=== PATIENT | female | born 1930 | race Caucasian/White ===

== ENCOUNTER 2016-09-28 07:55 | Inpatient (IN) | payer MEDICARE, OTHER ==
--- NOTE | ~2016-09-28 | IDS ---
Interim Discharge Summary [facility] [address] [place]. [address] NAME: RAMIN KENNEDY : 28 STATUS : DIS IN PAT#: [id number] AGE: 86 ADM/REG DATE : 09/29/16 MR#: [id number] REPORT SERV DATE: 10/01/16 DICTATED BY: JR. SORIANO WILLIAM JOHN DATE: 10/01/16 REPORT STATUS : Draft TRANSCRIBED BY: AMY DATE: 10/01/16 ADMISSION DATE: 09/29/2016 DISCHARGE DATE: This summary covers the time period from 09/29/2016 through 10/01/2016. WORKING DIAGNOSES: Include: 1. Frequent falls. 2. Right knee pain. 3. History of right total knee arthroplasty. 4. Encephalopathy with low-grade fever which has resolved. 5. Leukocytosis without shift. 6. Diarrhea which has resolved. 7. Chronic kidney disease, stage 3, which is stable. 8. Intertrigo. 9. History of hypertension. 10.History of remote stroke. OPERATIONS, PROCEDURES, AND TREATMENTS: Include: 1. Right knee aspirate by Dr. Okeefe, which showed no fat, essentially ruling out fracture. 2. CT of the brain done on 09/28/2016, which showed no acute intracranial abnormality atrophy with chronic small white matter changes. 3. Chest x-ray done on 09/29/2016, which showed minimal basilar atelectasis. 4. Right knee x-ray done on 09/29/2016, which showed expected appearance of right knee prosthesis without fracture or hardware loosening. There was a small joint effusion. 5. Echocardiogram done on 09/30/2016, which showed normal left ventricular size and systolic function and an ejection fraction of 55% with mild left ventricular diastolic dysfunction with normal right ventricular size and systolic function. There was no significant valvular disease. 6. Right ankle x-ray done on 09/30/2016, which showed soft tissue swelling without acute fracture or dislocation. 7. Chest x-ray done on 09/30/2016, which showed no acute cardiopulmonary disease. 8. MRI of the right knee done on 09/30/2016, which showed diffuse soft tissue edema of the right knee with moderately large knee joint effusion without evidence of periprosthetic fracture or bone bruising. There was evidence of a right total knee arthroplasty with patellar resurfacing. CURRENT MEDICATIONS: Include: 1. Aspirin 325 daily. 2. BuSpar 10 mg twice a day. 3. Duloxetine 30 mg twice a day. 4. Fluconazole 100 daily. 5. Neurontin 300 t.i.d. 6. Heparin 5000 units subcutaneously every 12 hours. 7. Sliding scale Humalog insulin. Interim Discharge Summary [address] [place]. [address] NAME: RAMIN KENNEDY : 29 STATUS : DIS IN PAT#: [id number] AGE: 86 ADM/REG DATE : 09/29/16 MR#: [id number] REPORT SERV DATE: 10/01/16 DICTATED BY: JR. SORIANO WILLIAM JOHN DATE: 10/01/16 REPORT STATUS : Draft TRANSCRIBED BY: AMY DATE: 10/01/16 8. Synthroid 75 mcg daily. 9. Metoprolol succinate 25 mg daily. 10.Nystatin topically twice a day. HOSPITAL COURSE: The patient is an 86-year-old female who presented to the emergency room on 09/28/2016, after a fall. The patient experienced several falls over the last several months. She had had three in the past week. Typically, she is upright and then states "everything goes black" and she is on the floor. Today, she had an episode at the assisted living and was found on the floor. She just states she was weak and dizzy and went to the floor. She did say she had abdominal pain, chest pain, without documented fever and had diarrhea over the weekend. On initial exam, her temperature was 100.7, blood pressure 123/54, heart rate 92, respiratory rate 20. Exam was remarkable for knee swelling and ecchymoses. Otherwise, unremarkable. EKG shows sinus rhythm without acute ST or T-wave change. BUN was 26. Creatinine was 1.5. Troponin was normal. Urinalysis unremarkable. The patient was admitted to the clinical decision unit for frequent falls. Regarding the right knee pain, the patient was seen by Dr. Okeefe of Orthopedic Surgery, who was kind enough to do an arthrocentesis of the joint to rule out fracture. There was no fat. There was blood indicating hemarthrosis. The knee remained red, hot, and swollen. Dr. Okeefe requested a knee brace with physical therapy. I discussed this with Dr. Okeefe at length. The patient also had a low-grade fever up to 100.8, one spike during the hospitalization. Otherwise, all temperatures were less than 100, I was concerned about a septic knee. Dr. Okeefe states that based on appearance of symptoms, he does not feel this is an infected knee and does not require an arthrocentesis. The patient did have an MRI as above. Recommendation for the right knee pain is to be weightbearing as tolerated on the right knee using a brace as needed along with analgesia and physical therapy. Regarding encephalopathy, this likely was a metabolic encephalopathy. There was no infectious source identified. The patient did have a CT of the brain as above and the encephalopathy has resolved. Regarding intertrigo, the patient was placed on fluconazole. I would recommend a one-week course of this followed by topical antifungal medications. Regarding the patient's frequent falls, she will need supervision and physical therapy. CURRENT DIET: Regular. CURRENT ACTIVITY: Weightbearing as tolerated. For today's exam and laboratory, please see the daily progress note. will assume the care of this patient in the morning. I would anticipate the patient would go to a jail facility tomorrow. Interim Discharge Summary [address] [address] NAME: RAMIN KENNEDY : 28 STATUS : DIS IN PAT#: [id number] AGE: 86 ADM/REG DATE : 09/29/16 MR#: [id number] REPORT SERV DATE: 10/01/16 DICTATED BY: JR. SORIANO WILLIAM JOHN DATE: 10/01/16 REPORT STATUS : Draft TRANSCRIBED BY: AMY DATE: 10/01/16 ALYSSAF/AMY Martinez Soriano Jr, MD / [id number] CC: Martinez Soriano Jr, MD
--- NOTE | ~2016-09-28 | HP ---
History And Physical [place] [address] [facility] [address] [place]. [address] NAME: RAMIN KENNEDY : 28 STATUS : ADM Geri PAT#: [id number] AGE: 86 ADM/REG DATE : 09/28/16 MR#: [id number] REPORT SERV DATE: 09/28/16 DICTATED BY: SLIM LIMON DATE: 09/28/16 REPORT STATUS : Draft TRANSCRIBED BY: MODJoceline DATE: 09/28/16 DATE OF ADMISSION: 09/28/2016 CHIEF COMPLAINT: Falls. HISTORY OF PRESENT ILLNESS: The patient is a very pleasant 86-year-old white female. She has had several falls over the last several months, but she has had three in the last week. Typically with these falls, she is upright and she is basically states everything goes black and then she is on the floor. Today, she had an episode at the assisted living, was found on the floor. She just states that she felt weak and dizzy and then went down to the floor. She did have any chest pain. She did have any abdominal pain. She did not feel particularly short of breath. She has not had any documented fevers. She has not had any vomiting. She did have diarrhea over the weekend. She states "multiple episodes." Her last diarrhea, however, was on Tuesday. She had none on Tuesday or Tuesday. She had had previous diarrhea to that a couple of weeks ago. She has frequent diminished appetite and weakness all over. Typically, her single episodes happen. When they happen, she feels dizzy and ends up on the floor. PAST MEDICAL HISTORY: 1. Hypertension. 2. Osteoarthritis. 3. Fibromyalgia. 4. Nephrolithiasis. 5. Hypothyroidism. 6. Hiatal hernia. 7. Gastritis. 8. Hyperlipidemia. 9. CVA with right-sided symptoms since resolved. 10.Hemorrhoids. 11.Peripheral neuropathy. SOCIAL HISTORY: She is a nondrinker, nonsmoker. PAST SURGICAL HISTORY: She has had a right total knee arthroplasty, bilateral total hip arthroplasty, back surgery, shoulder surgery, colon surgery, hysterectomy, cholecystectomy. FAMILY HISTORY: Positive for CAD and CVAs. HOME MEDICATIONS: Reviewed and attached. ALLERGIES: CODEINE. REVIEW OF SYSTEMS: Full 10-point review of systems obtained. Pertinent positives as mentioned in the HPI with the addition of skin. She does have erythema under the skin and what looks like a candidal rash. History And Physical [address] [place]. [address] NAME: RAMIN KENNEDY : 28 STATUS : ADM Geri PAT#: [id number] AGE: 86 ADM/REG DATE : 09/28/16 MR#: [id number] REPORT SERV DATE: 09/28/16 DICTATED BY: SLIM LIMON DATE: 09/28/16 REPORT STATUS : Draft TRANSCRIBED BY: AMY DATE: 09/28/16 PHYSICAL EXAMINATION: VITAL SIGNS: BP 123/54; sats 94%; temperature was 100.7 initially, I checked it again and it was 98.2; pulse is 92; respiratory rate is 20. GENERAL: A well-developed white female, elderly. HEENT: Normocephalic, atraumatic. Pupils are equal, round, and reactive. Throat is clear. NECK: Supple. Extraocular muscles are intact. HEART: Regular rate and rhythm. LUNGS: Grossly clear. ABDOMEN: Soft, nondistended, nontender. EXTREMITIES: Warm and dry. Skin is intact. There are no rashes. Pulses are 2+ at the feet. LAB AND X-RAY: EKG shows sinus rhythm with no acute ST-T wave changes and this was compared to a previous EKG back in 2012 and it was unchanged. CBC: Hemoglobin and hematocrit are 12 and 36, white count 12, platelets are 232. Basic metabolic panel: BUN and creatinine 26 and 1.48, glucose 124. LFTs are normal. Troponin is normal. Urinalysis is negative. Knee film does not reveal an acute fracture on the right knee. Brain CT shows chronic white matter changes, but nothing else on atrophy. EKG showed sinus rhythm with no acute ST-T wave changes and this was compared to previous EKG and is unchanged. ASSESSMENT/PLAN: 1. Frequent falls. Etiology not quite clear. I am going to check orthostatics. I think another consideration is a cardiac etiology. I think if we do not find orthostasis or another etiology, we can likely send her home with an event monitor. I think dehydration is a possibility. She had diarrhea over the weekend. I am going to hydrate her. Workup for diarrhea if she has any additional diarrhea. Check orthostatic blood pressure and pulse. Keep her on a tele bed. Repeat her EKG in the morning and see how things look in 24 hours. 2. Diarrhea has since resolved, but if she has additional diarrhea, we will send it off for C diff. She is going to get some IV fluids today. 3. Chronic kidney disease. There was a concern by the ER that she had acute kidney injury, however, if you look back, her last creatinine in April was 1.6, today it is 1.48. I am going to hydrate her and watch her renal function and see if there is any evidence that this was potentially reversible, but it looks like it has been there for some time. 4. Right knee pain. X-rays initially negative with no evidence of fracture. We will have Dr. Okeefe see her in consultation. Perhaps a steroid injection could relieve some of her pain and we can get her back on her feet a little faster, so she could be discharged. 5. History of hypertension. I think given her blood pressure, which is a bit borderline, she certainly does not appear to be hypertensive. I am going to hold some of her antihypertensives, check some orthostatics, and go from there. 6. History of cerebrovascular accident with symptoms resolved, follow. 7. Intertrigo under the folds including the breast folds and groin. We will likely explore the option of treating her with p.o. Diflucan along with some topical therapy to see if this assists as it has been difficult to clear. History And Physical [address] [address] NAME: RAMIN KENNEDY : 29 STATUS : ADM Geri PAT#: [id number] AGE: 86 ADM/REG DATE : 09/28/16 MR#: [id number] REPORT SERV DATE: 09/28/16 DICTATED BY: SLIM LIMON DATE: 09/28/16 REPORT STATUS : Draft TRANSCRIBED BY: MODJoceline DATE: 09/28/16 8. Deep venous thrombosis prophylaxis. We will give her subcu heparin. 9. Disposition. Pending above aforementioned plan and workup. GILMAR/AMY Slim Limon M.D. / [id number] CC: Martinez Soriano Jr, MD Zynia Pua-Vines, M.D.
--- NOTE | ~2016-09-28 | HP ---
History And Physical [place] [id number] [facility] [place]. [address] NAME: RAMIN KENNEDY : 29 STATUS : ADM Geri PAT#: [id number] AGE: 86 ADM/REG DATE : 09/28/16 MR#: [id number] REPORT SERV DATE: 09/28/16 DICTATED BY: MARTINEZ GOMES DATE: 09/28/16 REPORT STATUS : Draft TRANSCRIBED BY: MODJoceline DATE: 09/28/16 DATE OF ADMISSION: 09/28/2016 CHIEF COMPLAINT: Right knee pain. HISTORY: This is an 86-year-old female, who, many years ago, had a right total knee arthroplasty. Normally walks with a walker. In assisted living for the last two months. She has had multiple episodes of syncope and multiple falls. Now after this fall, she has severe pain with trying to move her knee. She denies any pain at the hip or hip region. She denies loss of consciousness, shortness of breath, chest pain, etc. ALLERGIES: NONE REPORTED. MEDICATIONS: See chart. PAST MEDICAL HISTORY: She is a difficult historian and none was available on the chart at this point. They are trying to pull old records. SOCIAL HISTORY: Again, she lives in assisted living now, currently without cigarettes, alcohol, or illicit drug use. FAMILY HISTORY: Really noncontributory. REVIEW OF SYSTEMS: Recent falls as noted above. PHYSICAL EXAMINATION: GENERAL: She is alert and oriented x3, in no apparent distress. Slow on memory of remote events. HEENT: Atraumatic, normocephalic. NECK: Supple. CHEST: Symmetric. LUNGS: Per Medicine evaluation. CV: Regular. EXTREMITIES: Both upper extremities and left lower extremity without acute trauma. Right knee has pain with range of motion from 0 to 30 degrees with significant pain and effusion. She had no appreciable erythema or warmth. Compartment supple. 2+ pulses. NEURO: Sensorimotor without deficit. Her foot, she has lacking about 10 degrees of extension at the knee with no palpable defects or instability. X-ray revealed total knee arthroplasty without complication except for questionable slight valgus. ASSESSMENT: Osteoporosis, multiple falls, now with probable hemarthrosis in the knee, which raises a question of occult fracture. The extensor mechanism appears to be intact and there is no evidence of hip trauma. She tolerates gentle motion there. PLAN: We will attempt to aspirate some of the fluid from that knee. We will see how she History And Physical [address] [place]. [place]. [address] NAME: RAMIN KENNEDY : 28 STATUS : ADM Geri PAT#: [id number] AGE: 86 ADM/REG DATE : 09/28/16 MR#: [id number] REPORT SERV DATE: 09/28/16 DICTATED BY: MARTINEZ GOMES DATE: 09/28/16 REPORT STATUS : Draft TRANSCRIBED BY: MODJoceline DATE: 09/28/16 does from there. She does not have any workup for syncope according to the chart at present. WTB/MODL Kia Gomes M.D. / [id number] CC: Martinez Soriano Jr, MD Zynia Pua-Vines, M.D.
[~2016-09-28 07:55] MED LIST: ALEVE220 MG PO; ASAB PO; B12 PO; CYANO1000T PO; CYMBALTA60 PO; HYZAAR 50/12.51 TAB PO; LEVOTHROID50 MCG PO; MULTI-VIT HP OR; NEUR300 PO; NEXIUM40 PO; PRIN5 PO; ZOCOR40 PO
[2016-09-28 08:10] LABS: BASOPHILS 0.3 %; BASOPHILS ABSOLUTE 0.04 10/3/uL (0.0-0.16); EOSINOPHILS 2.1 %; EOSINOPHILS ABSOLUTE 0.25 10/3/uL (0.0-0.53); ER CBC TAT 0 Hrs 03 Mins; HEMATOCRIT 36.8 % (36.0-48.0); HEMOGLOBIN 12.2 g/dL (12.0-16.0); IMMATURE GRANULOCYTES 0.6 %; IMMATURE GRANULOCYTES ABSOLUTE 0.07 10/3/uL (0.0-0.11); LYMPHOCYTES 28.7 %; LYMPHOCYTES ABSOLUTE 3.45 10/3/uL (0.67-4.30); MEAN CORPUS HGB CONC 33.2 g/dL (32.0-36.0); MEAN CORPUSCULAR HEMOGLOB 31.8 pg (26.0-34.0); MEAN CORPUSCULAR VOLUME 95.8 fL (80-100); MEAN PLATELET VOLUME 9.5 fL (9.2-13.0); MONOCYTES 13.3 %; PLATELET COUNT 232 10/3/uL (150-400); RBC DISTRIBUTION WIDTH 13.4 % (12.0-16.0); RED CELL COUNT 3.84 10/6/uL (4.0-5.6)
[2016-09-28 08:11] LABS: MANUAL DIFF NO %
[2016-09-28 08:18] LABS: INTERNATIONAL NORMAL RATI 1.1 UNITS (-); PARTIAL THROMBO TIME 31.8 SEC (22.5-37.2); PROTIME (NOT ORD) 14.4 SEC (12.0-14.5)
[2016-09-28 08:21] LABS: ASCORBIC ACID (UR NOT ORDER) NEG (NEG); BILIRUBIN, URINE NEGATIVE (NEG); ER URINALYSIS TAT 0 Hrs 14 Mins; KETONE, URINE NEGATIVE (NEG); LEUKOCYTE ESTERASE(NOT OR NEG (NEG); NITRITE (URINE) NEG (NEG); WBC (NOT ORDERED) (RFLEX) < 1 (0-5)
[2016-09-28 08:28] LABS: A/G RATIO 0.9 (0.7-1.9); ALBUMIN 3.4 G/DL (3.5-5.0); ALKALINE PHOSPHATASE 117 U/L (45-117); BUN (BLOOD UREA NITROGEN) 26 MG/DL (6-23); CALCIUM, SERUM 9.2 MG/DL (8.5-10.4); CHLORIDE, SERUM 99 MMOL/L (96-112); CO2 (CARBON DIOXIDE) 31 MMOL/L (24-34); CREATININE 1.48 MG/DL (0.55-1.02); GFR AFRICAN AMERICAN 37 ML/MIN (>=60); GFR NON AFRICAN AMERICAN 32 ML/MIN (>=60); GLOBULIN 3.9 G/DL (2.5-4.1); GLUCOSE, SERUM 124 MG/DL (60-99); POTASSIUM, SERUM 3.6 MMOL/L (3.5-5.3); SGOT(AST) 32 U/L (5-40); SGPT(ALT) 25 U/L (5-65); SODIUM, SERUM 139 MMOL/L (135-148); TOTAL BILIRUBIN 0.6 MG/DL (0-1.2); TOTAL PROTEIN 7.3 G/DL (6.0-8.5); TROPONIN I <0.02 NG/ML (<0.05)
[2016-09-28] MEDS ORDERED: L40 PO (11:02)
[2016-09-28] MEDS ORDERED: ASA5GR PO (11:02)
[2016-09-28] MEDS ORDERED: SYN075 PO (11:03)
[2016-09-28] MEDS ORDERED: HYZAAR 100/25 T1 TAB PO (11:03)
[2016-09-28] MEDS ORDERED: GLUCOPHXR PO (11:03)
[2016-09-28] MEDS ORDERED: TOPXL25 PO (11:03)
[2016-09-28] MEDS ORDERED: BUSPAR10 PO (11:04)
[2016-09-28] MEDS ORDERED: CYMBALTA30 PO (11:04)
[2016-09-28] MEDS ORDERED: KLOR-CON M2020 MEQ PO (11:05)
[2016-09-28] MEDS ORDERED: NEUR300 PO (11:06)
[2016-09-28 13:51] LABS: PROCALCITONIN 0.07 ng/mL (<0.5)
[2016-09-29 05:52] LABS: BASOPHILS 0.2 %; BASOPHILS ABSOLUTE 0.03 10/3/uL (0.0-0.16); EOSINOPHILS 0.1 %; EOSINOPHILS ABSOLUTE 0.01 10/3/uL (0.0-0.53); HEMATOCRIT 35.3 % (36.0-48.0); HEMOGLOBIN 11.8 g/dL (12.0-16.0); IMMATURE GRANULOCYTES 0.7 %; IMMATURE GRANULOCYTES ABSOLUTE 0.08 10/3/uL (0.0-0.11); LYMPHOCYTES ABSOLUTE 2.42 10/3/uL (0.67-4.30); MEAN CORPUS HGB CONC 33.4 g/dL (32.0-36.0); MEAN CORPUSCULAR HEMOGLOB 32.2 pg (26.0-34.0); MEAN CORPUSCULAR VOLUME 96.2 fL (80-100); MEAN PLATELET VOLUME 9.5 fL (9.2-13.0); MONOCYTES 12.3 %; MONOCYTES ABSOLUTE 1.49 10/3/uL (0.21-1.20); NEUTROPHILS 66.7 %; NEUTROPHILS ABSOLUTE 8.07 10/3/uL (2.02-8.40); PLATELET COUNT 235 10/3/uL (150-400); RBC DISTRIBUTION WIDTH 13.3 % (12.0-16.0); RED CELL COUNT 3.67 10/6/uL (4.0-5.6); WHITE BLOOD CELLS 12.1 10/3/uL (4.5-10.5)
[2016-09-29 05:55] LABS: MANUAL DIFF NO %
[2016-09-29 05:56] LABS: CALCIUM, SERUM 8.8 MG/DL (8.5-10.4); CHLORIDE, SERUM 105 MMOL/L (96-112); CREATININE 1.16 MG/DL (0.55-1.02); GFR AFRICAN AMERICAN 49 ML/MIN (>=60); GFR NON AFRICAN AMERICAN 42 ML/MIN (>=60); GLUCOSE, SERUM 144 MG/DL (60-99); POTASSIUM, SERUM 3.8 MMOL/L (3.5-5.3); SODIUM, SERUM 141 MMOL/L (135-148)
[2016-09-29 05:57] LABS: BUN (BLOOD UREA NITROGEN) 18 MG/DL (6-23); CO2 (CARBON DIOXIDE) 26 MMOL/L (24-34)
[2016-09-30 04:44] LABS: BASOPHILS 0.3 %; BASOPHILS ABSOLUTE 0.03 10/3/uL (0.0-0.16); EOSINOPHILS ABSOLUTE 0.36 10/3/uL (0.0-0.53); HEMATOCRIT 32.1 % (36.0-48.0); HEMOGLOBIN 10.6 g/dL (12.0-16.0); IMMATURE GRANULOCYTES 1.3 %; IMMATURE GRANULOCYTES ABSOLUTE 0.16 10/3/uL (0.0-0.11); LYMPHOCYTES 20.7 %; LYMPHOCYTES ABSOLUTE 2.46 10/3/uL (0.67-4.30); MEAN CORPUSCULAR HEMOGLOB 31.9 pg (26.0-34.0); MEAN CORPUSCULAR VOLUME 96.7 fL (80-100); MEAN PLATELET VOLUME 10.3 fL (9.2-13.0); MONOCYTES 13.2 %; MONOCYTES ABSOLUTE 1.57 10/3/uL (0.21-1.20); NEUTROPHILS 61.5 %; PLATELET COUNT 193 10/3/uL (150-400); RBC DISTRIBUTION WIDTH 13.5 % (12.0-16.0); RED CELL COUNT 3.32 10/6/uL (4.0-5.6); WHITE BLOOD CELLS 11.9 10/3/uL (4.5-10.5)
[2016-09-30 04:45] LABS: MANUAL DIFF NO %
[2016-09-30 04:49] LABS: CALCIUM, SERUM 8.6 MG/DL (8.5-10.4); CHLORIDE, SERUM 103 MMOL/L (96-112); CO2 (CARBON DIOXIDE) 25 MMOL/L (24-34); CREATININE 1.14 MG/DL (0.55-1.02); GFR AFRICAN AMERICAN 50 ML/MIN (>=60); GFR NON AFRICAN AMERICAN 43 ML/MIN (>=60); POTASSIUM, SERUM 4.1 MMOL/L (3.5-5.3); SODIUM, SERUM 137 MMOL/L (135-148)
[2016-09-30 04:51] LABS: BUN (BLOOD UREA NITROGEN) 22 MG/DL (6-23); GLUCOSE, SERUM 106 MG/DL (60-99)
[2016-09-30 05:32] LABS: PLATELET ESTIMATE ADQ (ADEQUATE)
[2016-09-30 05:33] LABS: RBC MORPHOLOGY NORM (NORMAL)
[2016-10-01 05:06] LABS: BASOPHILS 0.2 %; BASOPHILS ABSOLUTE 0.03 10/3/uL (0.0-0.16); EOSINOPHILS 0.7 %; HEMOGLOBIN 9.3 g/dL (12.0-16.0); IMMATURE GRANULOCYTES 0.4 %; IMMATURE GRANULOCYTES ABSOLUTE 0.06 10/3/uL (0.0-0.11); LYMPHOCYTES 16.1 %; LYMPHOCYTES ABSOLUTE 2.39 10/3/uL (0.67-4.30); MEAN CORPUS HGB CONC 32.6 g/dL (32.0-36.0); MEAN CORPUSCULAR HEMOGLOB 31.7 pg (26.0-34.0); MEAN CORPUSCULAR VOLUME 97.3 fL (80-100); MEAN PLATELET VOLUME 9.9 fL (9.2-13.0); MONOCYTES 12.6 %; MONOCYTES ABSOLUTE 1.87 10/3/uL (0.21-1.20); NEUTROPHILS ABSOLUTE 10.43 10/3/uL (2.02-8.40); PLATELET COUNT 228 10/3/uL (150-400); RBC DISTRIBUTION WIDTH 13.3 % (12.0-16.0); RED CELL COUNT 2.93 10/6/uL (4.0-5.6); WHITE BLOOD CELLS 14.9 10/3/uL (4.5-10.5)
[2016-10-01 05:10] LABS: HEMATOCRIT 28.5 % (36.0-48.0)
[2016-10-01 05:11] LABS: MANUAL DIFF NO %
== END 2016-10-01 14:26 | DRG 553 ==
LOC: ER 07:55 → CDU1 10:38 → 7NO 09-30 17:30
PROVIDERS: Internal Medicine; Nurse Practitioner Acute Care
PROC: 0S9C3ZX Drainage of Right Knee Joint, Percutaneous Approach, Diagnostic (ICD-10-PCS; principal; 2016-09-28)
DX: M25.061 Hemarthrosis, right knee (principal); G93.41 Metabolic encephalopathy; L30.4 Erythema intertrigo; R19.7 Diarrhea, unspecified; W19.XXXA Unspecified fall, initial encounter; N18.3 Chronic kidney disease, stage 3 (moderate); I12.9 Hypertensive chronic kidney disease with stage 1 through stage 4 chronic kidney disease, or unspecified chronic kidney disease; Z91.81 History of falling; Z86.73 Personal history of transient ischemic attack (TIA), and cerebral infarction without residual deficits; Z96.651 Presence of right artificial knee joint; Z79.82 Long term (current) use of aspirin
CPT/HCPCS: 70450; 71010; 73560-RT; 73610-RT; 73721-RT; 80048; 80053; 81001; 82962; 84145; 84443; 84484; 85025; 85610; 85730; 87040; 87493; 87493-59; 93005; 97110-GP; 97162-GP; 97165-GO; 99285; A9270-GY; C8929; G8978-CM-GP; G8979-CJ-GP; G8987-CK-GO; G8988-CJ-GO; Q9957

== ENCOUNTER 2016-11-20 15:07 | Emergency (ER) | payer MEDICARE, OTHER ==
[~2016-11-20 15:07] MED LIST changes: +ASA5GR PO; +BUSPAR10 PO; +CYMBALTA30 PO; +GLUCOPHXR PO; +HYZAAR 100/25 T1 TAB PO; +KLOR-CON M2020 MEQ PO; +L40 PO; +SYN075 PO; +TOPXL25 PO
== END 2016-11-20 17:27 | disposition home or self-care (01) ==
LOC: ER 15:07
DX: S93.401A Sprain of unspecified ligament of right ankle, initial encounter (principal); I10 Essential (primary) hypertension; K21.9 Gastro-esophageal reflux disease without esophagitis; Z86.73 Personal history of transient ischemic attack (TIA), and cerebral infarction without residual deficits; Z87.442 Personal history of urinary calculi; Z88.5 Allergy status to narcotic agent; Z79.82 Long term (current) use of aspirin; Z79.84 Long term (current) use of oral hypoglycemic drugs; Z79.899 Other long term (current) drug therapy; W19.XXXA Unspecified fall, initial encounter
CPT/HCPCS: 73610-RT; 99284; A9270-GY